=== PATIENT | male | born 1955 | race African-American/Black ===

== ENCOUNTER 2024-04-06 12:47 | Outpatient (CLI) | payer MEDICARE ==
[2024-04-06 15:21] LABS: INR-International Normal Ratio 1.2; PTT 30.7 sec (22.0-33.0); Prothrombin Time 13.1 sec (9.5-12.1)
[2024-04-06 15:27] LABS: Anion Gap 14 mmol/L (10-20); BUN (Urea Nitrogen) 12 mg/dL (8.4-25.7); Calc. Creatinine Clearance 0 mL/min (70-130); Calcium 8.7 mg/dL (7.8-10.44); Carbon Dioxide 24 mmol/L (23-31); Chloride 105 mmol/L (98-107); Estimated GFR 96; Glucose 106 mg/dL (83-110); Potassium 4.7 mmol/L (3.5-5.1); Sodium 138 mmol/L (136-145)
[2024-04-06 15:44] LABS: Hematocrit 35.1 % (38.8-50.0); Hemoglobin 11.6 g/dL (13.5-17.5); Mean Corpuscular Volume 87.8 fL (81.2-95.1); Mean Platelet Volume 9.7 fL (7.4-10.4); Platelet Count 583 10x3/uL (150-450); RBC Distribution Width 15.9 % (11.5-14.5); White Blood Cell (WBC) Count 5.1 10x3/uL (3.5-10.5)
== END 2024-04-06 12:48 | disposition home or self-care (01) ==
LOC: LABBT 12:47
PROVIDERS: ATTEND Student in an Organized Health Care Education/Training Program
DX: Z01.818 Encounter for other preprocedural examination (principal); C34.81 Malignant neoplasm of overlapping sites of right bronchus and lung
CPT/HCPCS: 71046; 80048; 85027; 85610; 85730; 93005; 93010

== ENCOUNTER 2024-04-13 06:16 | Day surgery (SDC) | payer MEDICARE ==
[2024-04-06 13:48] VITALS: BMI 26.2
[2024-04-13] MEDS ORDERED: Midazolam HCl 2 mg/2 ml Vial ONE (06:45)
[2024-04-13] MEDS ORDERED: ePHEDrine Sulfate 50 MG/10 ML VIAL ONE (06:45)
[2024-04-13] MEDS ORDERED: PHENYLEPHRINE-NS 100 MCG/ML 10 ML SYRINGE ONE (06:45)
[2024-04-13] MEDS ORDERED: fentaNYL PF 100 MCG/2 ML SYRINGE ONE ×2 (06:45→07:39)
[2024-04-13] MEDS ORDERED: PROPOFOL 20 ML ONE (06:45)
[2024-04-13] MEDS ORDERED: Bupivacaine PF 0.5% 30 ML VIAL ONE (06:46)
[2024-04-13] MEDS ORDERED: EPINEPHrine 1 MG/ML VIAL ONE (06:46)
[2024-04-13] MEDS ORDERED: Sodium Chloride 0.9% 100 ML ONE ×2 (07:20→07:47)
[2024-04-13] MEDS ORDERED: CEFAZOLIN 2 GM VIAL ONE (07:20)
[2024-04-13] MEDS ORDERED: Dexmedetomidine 200 MCG/2 ML VIAL ONE (07:46)
== END 2024-04-13 09:03 | disposition home or self-care (01) ==
LOC: SDC 06:16
PROVIDERS: ATTEND Student in an Organized Health Care Education/Training Program
PROC: 0WP Anatomical Regions, General, Removal (ICD-10-PCS; principal; 2024-04-13)
DX: T85.698A Other mechanical complication of other specified internal prosthetic devices, implants and grafts, initial encounter (principal); J91.0 Malignant pleural effusion; Y83.9 Surgical procedure, unspecified as the cause of abnormal reaction of the patient, or of later complication, without mention of misadventure at the time of the procedure; I25.10 Atherosclerotic heart disease of native coronary artery without angina pectoris; Z95.1 Presence of aortocoronary bypass graft; I10 Essential (primary) hypertension; E78.5 Hyperlipidemia, unspecified; J96.01 Acute respiratory failure with hypoxia; C61 Malignant neoplasm of prostate; M48.07 Spinal stenosis, lumbosacral region; Z79.02 Long term (current) use of antithrombotics/antiplatelets; Z79.899 Other long term (current) drug therapy; Z87.891 Personal history of nicotine dependence
CPT/HCPCS: 32552; 71045; 82962; 86850; 86900; 86901; J0171; J0665; J2250; J2704; J3490; 36416

== ENCOUNTER 2024-04-20 08:00 | Outpatient (CLI) | payer MEDICARE | END 2024-04-20 08:01 | disposition home or self-care (01) | LOC: PET 08:00 | PROVIDERS: ATTEND Internal Medicine Hematology & Oncology | DX: C34.81 Malignant neoplasm of overlapping sites of right bronchus and lung (principal); R59.0 Localized enlarged lymph nodes; J98.4 Other disorders of lung | CPT/HCPCS: 78815; A9552 ==

== ENCOUNTER 2024-04-27 14:07 | Outpatient (CLI) | payer MEDICARE | END 2024-04-27 14:08 | disposition home or self-care (01) | LOC: RAD 14:07 | PROVIDERS: ATTEND Student in an Organized Health Care Education/Training Program | DX: J91.0 Malignant pleural effusion (principal); J91.8 Pleural effusion in other conditions classified elsewhere | CPT/HCPCS: 71046 ==

== ENCOUNTER 2024-05-21 10:16 | Inpatient (IN) | payer MEDICARE ==
[2024-05-21 11:24] LABS: Reflex for Review?? YES
[2024-05-21] MEDS ORDERED: Cefepime 2 GM VIAL ONE (11:28)
[2024-05-21] MEDS ORDERED: Sodium Chloride 0.9% 100 ML ONE (11:28)
[2024-05-21 11:29] LABS: INR-International Normal Ratio 1.5; Prothrombin Time 17.7 sec (12.0-14.7)
[2024-05-21 11:30] LABS: ALT (SGPT) 16 U/L (8-55); AST (SGOT) 36 U/L (5-34); Albumin 1.9 g/dL (3.4-4.8); Alkaline Phosphatase 94 U/L (40-110); Anion Gap 11 mmol/L (10-20); BUN (Urea Nitrogen) 8 mg/dL (8.4-25.7); Bilirubin, Total 0.3 mg/dL (0.2-1.2); Calc. Creatinine Clearance 0 mL/min (70-130); Calcium 8.3 mg/dL (7.8-10.44); Carbon Dioxide 21 mmol/L (23-31); Chloride 102 mmol/L (98-107); Estimated GFR 97; Globulin 4.1 g/dL (2.4-3.5); Glucose 99 mg/dL (83-110); Magnesium 1.8 mg/dL (1.6-2.6); PTT 50.4 sec (22.9-36.1); Potassium 3.6 mmol/L (3.5-5.1); Sodium 130 mmol/L (136-145)
[2024-05-21 11:32] LABS: D-Dimer Test 1.51 mcg/mL (0.27-0.43)
[2024-05-21 11:41] LABS: Troponin I Less than 0.010 ng/mL (< 0.028)
[2024-05-21 11:57] LABS: Anisocytosis SLIGHT = 6-15 cells HPF (0-5); Band 4 % (5-11); Burr Cells SLIGHT = 2-5 cells HPF (0-1); Lymphocytes 27 % (21-51); Monocytes 8 % (0-10); Neutrophil 60 % (42-75); Nucleated RBC (Manual Ct) 1 % (0); Platelet Adequacy Comment Platelets Normal; Polychromasia SLIGHT = 2-3 cells HPF (0-2); Reactive Lymphocytes 1 % (0-10); Schistocytes SLIGHT = 2-5 cells HPF (0-1)
[2024-05-21 11:58] LABS: Hematocrit 23.5 % (42.0-52.0); Hemoglobin 7.4 g/dL (14.0-18.0); Mean Corpuscular HGB CONC 31.5 g/dL (32.0-36.0); Mean Corpuscular Hemoglobin 28.8 pg (27.0-31.0); Mean Corpuscular Volume 91.4 fL (78.0-98.0); Mean Platelet Volume 9.3 fL (7.4-10.4); Platelet Count 150 10x3/uL (130-400); RBC Distribution Width 19.7 % (11.5-14.5); Red Blood Cell (RBC) Count 2.57 mill/uL (4.70-6.10)
[2024-05-21] MEDS ORDERED: Iopamidol-370 76% 500 ML MDV (1 ML CHARGE) ONE (12:23)
[2024-05-21 13:30] LABS: Bacteria/HPF None Seen HPF (None Seen); Bilirubin Negative (Negative); Blood, Urine Negative (Negative); CAUTI Indications for Culture Immunosuppressed; Clarity Clear (Clear); Glucose, Urine (Dipstick) Normal (Negative); Ketone, Urine Negative (Negative); Leukocyte Negative Leu/uL (Negative); Nitrite Negative (Negative); Protein, Urine (Dipstick) Negative (Neg-Trace); RBC/HPF 0-3 HPF (0-3); Specific Gravity, Urine 1.027 (1.002-1.036); Squamous Epithelial None Seen HPF (0-3); Urobilinogen Normal mg/dL (Less than 2); WBC/HPF 0-3 HPF (0-3); pH, Urine 5.5 (5.0-9.0)
[2024-05-21 13:37] LABS: Urine Culture Reflex Yes Yes
[2024-05-21 14:12] LABS: Lactic Acid 2.1 mmol/L (0.5-2.2)
[2024-05-21] MEDS ORDERED: HYDROcodone/Acetaminophen 10/325 mg Tablet PO PRN (16:08)
[2024-05-21 16:30] VITALS: BMI 24.2
[2024-05-21] MEDS: HYDROcodone/Acetaminophen 10/325 mg Tablet PO PRN (16:36)
[2024-05-21] MEDS: Acetaminophen 325 MG TAB PO SCH (17:43)
[2024-05-21] MEDS: Albuterol 200 PUFF (6.7GM INHALER) INH SCH (19:18)
[2024-05-21] MEDS: Apixaban 5 MG TAB PO SCH (20:54)
[2024-05-21] MEDS: Simvastatin 10 MG TAB PO SCH (20:54)
[2024-05-21 22:34] LABS: Lactic Acid 1.1 mmol/L (0.5-2.2)
[2024-05-22 00:11] LABS: Hematocrit 26.6 % (42.0-52.0); Hemoglobin 8.5 g/dL (14.0-18.0)
[2024-05-22 03:41] LABS: Hematocrit 26.9 % (42.0-52.0); Hemoglobin 8.8 g/dL (14.0-18.0); Mean Corpuscular HGB CONC 32.7 g/dL (32.0-36.0); Mean Corpuscular Hemoglobin 28.7 pg (27.0-31.0); Mean Corpuscular Volume 87.6 fL (78.0-98.0); Mean Platelet Volume 8.9 fL (7.4-10.4); Platelet Count 210 10x3/uL (130-400); RBC Distribution Width 19.9 % (11.5-14.5); Red Blood Cell (RBC) Count 3.07 mill/uL (4.70-6.10)
[2024-05-22 04:05] LABS: ALT (SGPT) 17 U/L (8-55); AST (SGOT) 42 U/L (5-34); Albumin 1.8 g/dL (3.4-4.8); Alkaline Phosphatase 90 U/L (40-110); Anion Gap 9 mmol/L (10-20); BUN (Urea Nitrogen) 7 mg/dL (8.4-25.7); Bilirubin, Total 0.5 mg/dL (0.2-1.2); Calc. Creatinine Clearance 100 mL/min (70-130); Calcium 8.2 mg/dL (7.8-10.44); Carbon Dioxide 22 mmol/L (23-31); Chloride 105 mmol/L (98-107); Estimated GFR 98; Globulin 4.1 g/dL (2.4-3.5); Glucose 83 mg/dL (83-110); Potassium 4.2 mmol/L (3.5-5.1); Protein, Total 5.9 g/dL (5.8-8.1); Sodium 132 mmol/L (136-145)
[2024-05-22 05:22] LABS: Anisocytosis SLIGHT = 6-15 cells HPF (0-5); Band 2 % (5-11); Eosinophils 1 % (0-10); Large Platelets 13.3 % (0-5); Lymphocytes 28 % (21-51); Metamyelocyte 1 % (0-0); Monocytes 15 % (0-10); Myelocyte 2 % (0-0); Neutrophil 51 % (42-75); Nucleated RBC (Manual Ct) 1 % (0); Platelet Adequacy Comment Platelets Normal; Smudge Cells 44.8 %
[2024-05-22] MEDS: Lactated Ringer's 500 ML IV SCH ×3 (05:27→17:17)
[2024-05-22] MEDS: Aspirin 81 mg Enteric Coated Tablet PO SCH (08:09)
[2024-05-22] MEDS: Folic Acid 1 MG TAB PO SCH (08:09)
[2024-05-22] MEDS ORDERED: Ipratropium/Albuterol 3 ML NEB NEB PRN (15:11)
[2024-05-22] MEDS: Lidocaine 4% Patch TD SCH (16:43)
[2024-05-22 17:53] LABS: Lactic Acid 1.7 mmol/L (0.5-2.2)
[2024-05-22] MEDS: Vancomycin (BATCH) 1.75 GM in Premix 1 BAG IVPB SCH (18:06)
[2024-05-22 19:55] LABS: Hematocrit 28.9 % (42.0-52.0); Hemoglobin 9.3 g/dL (14.0-18.0)
[2024-05-22] MEDS: Cefepime 2 GM in Sodium Chloride 0.9% 100 ML IVPB SCH (20:20)
[2024-05-22] MEDS ORDERED: Vancomycin 1.5 GM in Sodium Chloride 0.9% 250 ML 300 ML IVPB SCH (21:00)
[2024-05-22 21:35] LABS: Bacteria/HPF None Seen HPF (None Seen); Bilirubin Negative (Negative); Blood, Urine Negative (Negative); CAUTI Indications for Culture Immunosuppressed; Clarity Clear (Clear); Glucose, Urine (Dipstick) Normal (Negative); Ketone, Urine Negative (Negative); Leukocyte Negative Leu/uL (Negative); Nitrite Negative (Negative); Protein, Urine (Dipstick) 10 mg/dL (Neg-Trace); RBC/HPF 0-3 HPF (0-3); Specific Gravity, Urine 1.024 (1.002-1.036); Squamous Epithelial None Seen HPF (0-3); WBC/HPF 0-3 HPF (0-3); pH, Urine 5.5 (5.0-9.0)
[2024-05-22 21:53] LABS: Urine Culture Reflex Yes Yes
[2024-05-23] MEDS: Transdermal Patch Removal TOP SCH ×2 (04:53→22:39)
[2024-05-23 05:08] LABS: Vancomycin, Random 12.7 ug/mL (See Comment)
[2024-05-23 05:13] LABS: ALT (SGPT) 18 U/L (8-55); AST (SGOT) 48 U/L (5-34); Albumin 1.7 g/dL (3.4-4.8); Alkaline Phosphatase 83 U/L (40-110); Anion Gap 11 mmol/L (10-20); BUN (Urea Nitrogen) 8 mg/dL (8.4-25.7); Bilirubin, Total 0.3 mg/dL (0.2-1.2); Calc. Creatinine Clearance 113 mL/min (70-130); Calcium 7.9 mg/dL (7.8-10.44); Carbon Dioxide 21 mmol/L (23-31); Chloride 106 mmol/L (98-107); Estimated GFR 102; Globulin 3.7 g/dL (2.4-3.5); Glucose 78 mg/dL (83-110); Potassium 4.2 mmol/L (3.5-5.1); Protein, Total 5.4 g/dL (5.8-8.1); Sodium 134 mmol/L (136-145)
[2024-05-23 05:20] LABS: Hematocrit 28.5 % (42.0-52.0); Hemoglobin 9.2 g/dL (14.0-18.0); Mean Corpuscular HGB CONC 32.3 g/dL (32.0-36.0); Mean Corpuscular Volume 83.6 fL (78.0-98.0); Mean Platelet Volume 9.3 fL (7.4-10.4); Platelet Count 266 10x3/uL (130-400); Red Blood Cell (RBC) Count 3.41 mill/uL (4.70-6.10)
[2024-05-23 06:10] LABS: Anisocytosis SLIGHT = 6-15 cells HPF (0-5); Band 7 % (5-11); Elliptocytes SLIGHT = 2-5 cells HPF (0-1); Large Platelets 5.2 % (0-5); Lymphocytes 18 % (21-51); Macrocytosis SLIGHT = 6-15 cells HPF (0-5); Metamyelocyte 1 % (0-0); Monocytes 27 % (0-10); Neutrophil 47 % (42-75); Nucleated RBC (Manual Ct) 1 % (0); Platelet Adequacy Comment Platelets Normal; Polychromasia SLIGHT = 2-3 cells HPF (0-2); Smudge Cells 36.1 %
[2024-05-23] MEDS: Vancomycin (BATCH) 1.25 GM in Premix 1 BAG IVPB SCH (06:32)
[2024-05-23] MEDS: Lidocaine 4% Patch TD SCH (10:05)
[2024-05-23] MEDS: Midodrine HCl 5 MG TAB PO SCH ×2 (12:44→21:00)
[2024-05-23] MEDS ORDERED: Midodrine HCl 5 MG TAB PO SCH (21:00)
[2024-05-24 05:16] LABS: Hematocrit 29.8 % (42.0-52.0); Hemoglobin 9.7 g/dL (14.0-18.0); Mean Corpuscular HGB CONC 32.6 g/dL (32.0-36.0); Mean Corpuscular Hemoglobin 27.7 pg (27.0-31.0); Mean Corpuscular Volume 85.1 fL (78.0-98.0); Mean Platelet Volume 8.7 fL (7.4-10.4); Platelet Count 315 10x3/uL (130-400)
[2024-05-24 05:54] LABS: ALT (SGPT) 20 U/L (8-55); AST (SGOT) 55 U/L (5-34); Albumin 1.7 g/dL (3.4-4.8); Alkaline Phosphatase 88 U/L (40-110); Anion Gap 9 mmol/L (10-20); BUN (Urea Nitrogen) 7 mg/dL (8.4-25.7); Bilirubin, Total 0.3 mg/dL (0.2-1.2); Calc. Creatinine Clearance 105 mL/min (70-130); Calcium 7.9 mg/dL (7.8-10.44); Carbon Dioxide 22 mmol/L (23-31); Chloride 107 mmol/L (98-107); Estimated GFR 99; Globulin 3.7 g/dL (2.4-3.5); Glucose 77 mg/dL (83-110); Potassium 4.1 mmol/L (3.5-5.1); Protein, Total 5.4 g/dL (5.8-8.1); Sodium 134 mmol/L (136-145)
[2024-05-24 06:20] LABS: Band 6 % (5-11); Burr Cells SLIGHT = 2-5 cells HPF (0-1); Eosinophils 1 % (0-10); Large Platelets 9.9 % (0-5); Lymphocytes 22 % (21-51); Monocytes 26 % (0-10); Neutrophil 44 % (42-75); Nucleated RBC (Manual Ct) 2 % (0); Platelet Adequacy Comment Platelets Normal; Polychromasia SLIGHT = 2-3 cells HPF (0-2); Smudge Cells 68.3 %
[2024-05-24 11:50] VITALS: BP 118/75; TEMP 98.5
== END 2024-05-24 13:18 | disposition home or self-care (01) | DRG 641 ==
LOC: ERS 10:16 → 2NO 16:23
PROVIDERS: ADMIT Family Medicine; ATTEND Family Medicine
DX: E86.1 Hypovolemia (principal); I50.22 Chronic systolic (congestive) heart failure; C34.90 Malignant neoplasm of unspecified part of unspecified bronchus or lung; J91.0 Malignant pleural effusion; J96.11 Chronic respiratory failure with hypoxia; I95.2 Hypotension due to drugs; E87.1 Hypo-osmolality and hyponatremia; T45.1X5A Adverse effect of antineoplastic and immunosuppressive drugs, initial encounter; D64.9 Anemia, unspecified; I25.10 Atherosclerotic heart disease of native coronary artery without angina pectoris; Z95.1 Presence of aortocoronary bypass graft; Z98.890 Other specified postprocedural states; Z79.899 Other long term (current) drug therapy; D70.9 Neutropenia, unspecified; E88.09 Other disorders of plasma-protein metabolism, not elsewhere classified
CPT/HCPCS: 36415; 36430; 71045; 71275; 74174; 80053; 80202; 81001; 83605; 83735; 83880; 83935; 84300; 84484; 85014; 85018; 85025; 85060; 85379; 85610; 85730; 86850; 86900; 86901; 87040; 87086; 93005; 93010; 93306; J0692; J3370; J7120; P9016; Q9967

== ENCOUNTER 2024-06-15 10:15 | Outpatient (CLI) | payer MEDICARE | END 2024-06-15 10:16 | disposition home or self-care (01) | LOC: PET 10:15 | PROVIDERS: ATTEND Internal Medicine Hematology & Oncology | DX: C34.81 Malignant neoplasm of overlapping sites of right bronchus and lung (principal) | CPT/HCPCS: 78815; A9552 ==